=== PATIENT | male | born 1965 | race Caucasian/White ===

== ENCOUNTER → 2019-06-30 | Outpatient (CLI) | payer OTHER ==
--- NOTE | 2019-06-30 10:29 | CT ---
EXAMINATION TYPE: CT ankle RT wo con DATE OF EXAM: 06/30/2019 COMPARISON: None HISTORY: Fall from ladder CT DLP: 179.1 mGycm Automated exposure control for dose reduction was used. CONTRAST: None TECHNIQUE: Axial images 2 mm thick sections. Reconstructed images in the coronal and sagittal planes. Three-D reconstructed images performed separately by the technologist on a separate computer are pre sented for interpretation. FINDINGS: There is a comminuted fracture of the distal tibia. This has intra-articular extension. Diastases of some fracture fragments is evident. The distal fibula appears intact. Talus appears intact. Calcaneus appears intact. Some diminished bon e density within the calcaneus is noted. Some talocalcaneal degenerative joint changes may be present . IMPRESSION: COMMINUTED FRACTURE WITH INTRA-ARTICULAR EXTENSION OF THE DISTAL TIBIA. SOME MILD DIASTASES PORTIONS OF THE FRACTURES MAY BE PRESENT.
== END | disposition home or self-care (01) ==
LOC: RADCTMAIN 07:01
PROVIDERS: ATTEND Orthopaedic Surgery
DX: S82.391A Other fracture of lower end of right tibia, initial encounter for closed fracture (principal)